=== PATIENT | male | born 1980 | race African-American/Black ===

== ENCOUNTER 2017-05-01 20:13 | Emergency (ER) | payer OTHER ==
[~2017-05-01] VITALS: Ht 177.8 cm; Wt 95.3 kg
[~2017-05-01 20:13] MED LIST: FLEXERIL PO; NORCO 5-325 TA1 EACH PO; PERCOCET 5-3251 EACH PO
[2017-05-01 20:17] VITALS: BP 145/92
[2017-05-01] MEDS ORDERED: MOBIC15 MG PO (20:37)
[2017-05-01] MEDS ORDERED: FLEXERIL PO (20:37)
== END 2017-05-01 20:54 | disposition home or self-care (01) ==
LOC: ER 20:13
DX: S39.012A Strain of muscle, fascia and tendon of lower back, initial encounter (principal); S16.1XXA Strain of muscle, fascia and tendon at neck level, initial encounter; F17.210 Nicotine dependence, cigarettes, uncomplicated; V89.2XXA Person injured in unspecified motor-vehicle accident, traffic, initial encounter; Y93.89 Activity, other specified; Y92.89 Other specified places as the place of occurrence of the external cause; Y99.8 Other external cause status